=== PATIENT | female | born 1935 | race African-American/Black ===

== ENCOUNTER 2017-06-05 04:59 | Outpatient (CLI) | payer OTHER ==
--- NOTE | 2017-06-05 08:44 | Diagnostic Imaging Report ---
Indication: Headache Technique: Continuous helical CT scanning of the head was performed without intravenous contrast material. Axial and coronal 5 mm sections were generated. Radiation dose was minimized using automated exposure control Dose: Total Dose Length Product - DLP 1333.[address] Dose Index - CTDIvol(s) 70.38 mGy. Comparison: none Findings: The ventricular system is normal in size and configuration. There is minimal periventricular deep white matter low-attenuation There is no shift of midline structures. No abnormal extra-axial fluid collections are noted. There is no evidence of intracerebral bleeding. No other abnormal high or low density areas are noted within the brain. The calvarium is intact. There is evidence of prior bilateral cataract surgery Impression: Minimal periventricular deep white matter chronic ischemic change. Otherwise normal CT scan of the head without contrast material. This agrees with the preliminary interpretation provided overnight by [facility]. The CT scanner at [facility] is accredited by the [employer] and the scans are performed using protocols designed to limit radiation exposure to as low as reasonably achievable to attain images of sufficient resolution adequate for diagnostic evaluation.
== END 2017-06-05 06:59 | disposition home or self-care (01) ==
LOC: RAD 04:59
DX: R51 Headache (principal)
CPT/HCPCS: 70450